=== PATIENT | male | born 1955 | race Caucasian/White ===

== ENCOUNTER 2017-12-13 07:53 | Observation (INO) | payer OTHER ==
[~2017-12-13] VITALS: Ht 180.3 cm; Wt 97.5 kg
[~2017-12-13 07:53] MED LIST: AMLODIPINE BESY10 MG PO; NEXIUM20 MG PO; ROPIVACAINE 246.25 MG, EPINEPHRINE HCL 1:1000 0.5 MG, CLONIDINE HCL 0.08 MG, KETOROLAC ... INJ ONE
[2017-12-13] MEDS ORDERED: CELECOXIB 200 MG CAP ONE (07:56)
--- OUTSIDE RECORDS SUMMARY | 2017-12-13 07:56 | XMS REPORT | Clinical Summary ---
Author Author [facility] Organization [facility] Address Unknown Phone Unavailable Care Team Providers Care Hand Cutter Apprentice Name Role Phone Dayne Diamond MD PCP Allergies No Known Allergies Current Medications Prescription Sig. Disp. Refills Start End Date Status Date amLODIPine (NORVASC) 10 10/06/19 Active mg tablet 17 meloxicam (MOBIC) 7.5 mg as needed. 09/18/19 Active tablet 17 esomeprazole magnesium Take by mouth as needed. Active 22.3 mg capsule,delayed release(DR/EC) docusate sodium (STOOL Take 250 mg by mouth Active SOFTENER) 250 MG capsule daily. melatonin 10 mg capsule Take by mouth. Active oxymetazoline (AFRIN) 2 sprays into each Active 0.05 % nasal spray nostril 2 (two) times a day. bisacodyl (GENTLE Take 5 mg by mouth daily Active LAXATIVE) 5 mg EC tablet as needed for constipation. cetirizine (ZyrTEC) 10 MG Take 10 mg by mouth Active tablet daily. fluticasone (FLONASE) 50 2 sprays by Each Nare Active mcg/actuation nasal spray route daily. esomeprazole (NexIUM) 20 07/26/20 Active MG capsule 17 naltrexone (DEPADE) 50 mg Take 50 mg by mouth Active tablet daily. naproxen (NAPROSYN) 500 Take 1 tablet (500 mg 20 tablet 0 08/25/19 09/04/19 MG tablet total) by mouth 2 (two) 18 18 times a day as needed (pain) for up to 10 days. aluminum-magnesium Take 30 mL by mouth 3 450 mL 0 08/25/19 08/30/19 hydroxide (MAALOX) (three) times a day 18 18 200-200 mg/5 mL before meals for 5 days. suspension ranitidine (ZANTAC) 150 Take 1 tablet (150 mg 10 tablet 0 08/25/19 08/30/19 MG tablet total) by mouth 2 (two) 18 18 times a day for 5 days. Active Problems Problem Noted Date Esophagitis 11/23/2016 Diaphragmatic hernia without obstruction and without gangrene 11/23/2016 Internal hemorrhoids 11/23/2016 Constipation 11/23/2016 Abdominal pain 11/01/2016 Dyspepsia 11/01/2016 Gastroesophageal reflux disease 11/01/2016 Family history of colon cancer 11/01/2016 Encounters Date Type Specialty Care Team Description 08/25/2017 Emergency Emergency Medicine Ryan Dalton MD Right upper quadrant Leonel Castaneda MD abdominal pain (Primary Dx) after 12/12/2016 Family History Medical History Relation Name Comments Colon cancer Father Colon polyps Father Heart attack Sister Relation Name Status Comments Father Mother Sister Social History Tobacco Use Types Packs/Day Years Used Date Former Smoker Quit: 11/01/2009 Smokeless Tobacco: Chew Current User Alcohol Use Drinks/Week oz/Week Comments Yes 3 Cans of 1.8 daily beer Sex Assigned at Date Recorded Not on file Last Filed Vital Signs Vital Sign Reading Time Taken Blood Pressure 142/104 08/25/2017 4:41 PM ORDER BUILDER LOADER Pulse 107 08/25/2017 4:41 PM ORDER BUILDER LOADER Temperature 37.4 C (99.3 F) 08/25/2017 1:35 PM ORDER BUILDER LOADER Respiratory Rate 19 08/25/2017 4:41 PM ORDER BUILDER LOADER Oxygen Saturation 97% 08/25/2017 4:41 PM ORDER BUILDER LOADER Inhaled Oxygen - - Concentration Weight 93.4 kg (206 lb) 08/25/2017 9:49 AM ORDER BUILDER LOADER Height 182.9 cm (6') 08/25/2017 9:49 AM ORDER BUILDER LOADER Body Mass Index 27.94 08/25/2017 9:49 AM ORDER BUILDER LOADER Plan of Treatment Date Type Specialty Care Team Description 12/29/2017 [facility] [address] [place] [id number] Health Maintenance Due Date Last Done Comments COLONOSCOPY 10/17/2007 SHINGRIX VACCINE (#1) 10/17/2007 ZOSTER VACCINE 2017 INFLUENZA VACCINE 03/15/2018 Results * ECG ED Preliminary Interpretation - NOT AN ORDER (08/25/2017 5:16 PM) Narrative Leonel Castaneda MD 08/25/20175:16 PM ECG ED Preliminary Interpretation - Not an Order Performed by: LEONEL CASTANEDA Authorized by: LEONEL CASTANEDA ECG reviewed by ED Physician in the absence of a butting saw operator: yes Interpretation: Interpretation: normal Rate: ECG rate:121 ECG rate assessment: tachycardic Rhythm: Rhythm: sinus tachycardia Ectopy: Ectopy: none QRS: QRS axis:Normal Conduction: Conduction: normal ST segments: ST segments:Normal T waves: T waves: normal * CT Abdomen Pelvis W Contrast (08/25/2017 3:58 PM) Specimen Performing Laboratory [facility] [address] [place] [address] Narrative EXAMINATION:CT ABDOMEN PELVIS W CONTRAST CLINICAL HISTORY:hx of cirroshisworsening RUQ pain TECHNIQUE: Multiple axial CT images of the abdomen and pelvis are obtained with the use of intravenous contrast. Coronal and sagittal 3-D reconstructions are obtained. CT scans are performed using radiation dose reduction techniques.Technical factors are evaluated and adjusted to ensure appropriate moderation of exposure. Automated dose management technology is applied to adjust radiation exposure while achieving a diagnostic quality image. COMPARISON:None. FINDINGS: Visualized lower lung zones are clear. The gallbladder has been removed. The CT appearance of the liver, spleen, adrenal glands and pancreas is unremarkable. The abdominal aorta has no aneurysmal dilatation. There is no retroperitoneal adenopathy. The kidneys do not have any solid renal mass or hydronephrosis. CT Pelvis: There is no evidence of any pneumoperitoneum. The appendix is visualized and does not have any inflammatory change. There is some mild stranding seen within the ascending colon which may represent possible early colitis. The remainder of the colon is unremarkable. There is no small bowel obstruction nor any dilated loops of bowel present. The bladder does not demonstrate any masses. There is no evidence of any inguinal hernia. IMPRESSION: 1. There is some minimal stranding seen adjacent to the ascending colon near the hepatic flexure. This finding may represent possible early colitis. 2. There is no bowel obstruction nor any dilated loops of bowel. 3. The gallbladder has been previously removed. 4. The abdomen and pelvis do not demonstrate any masses. [facility]-[id number] August 2015 Procedure Note Interface, Radiology Results Incoming - 08/25/2017 4:21 PM ORDER BUILDER LOADER EXAMINATION: CT ABDOMEN PELVIS W CONTRAST CLINICAL HISTORY: hx of cirroshis worsening RUQ pain TECHNIQUE: Multiple axial CT images of the abdomen and pelvis are obtained with the use of intravenous contrast. Coronal and sagittal 3-D reconstructions are obtained. CT scans are performed using radiation dose reduction techniques. Technical factors are evaluated and adjusted to ensure appropriate moderation of exposure. Automated dose management technology is applied to adjust radiation exposure while achieving a diagnostic quality image. COMPARISON: None. FINDINGS: Visualized lower lung zones are clear. The gallbladder has been removed. The CT appearance of the liver, spleen, adrenal glands and pancreas is unremarkable. The abdominal aorta has no aneurysmal dilatation. There is no retroperitoneal adenopathy. The kidneys do not have any solid renal mass or hydronephrosis. CT Pelvis: There is no evidence of any pneumoperitoneum. The appendix is visualized and does not have any inflammatory change. There is some mild stranding seen within the ascending colon which may represent possible early colitis. The remainder of the colon is unremarkable. There is no small bowel obstruction nor any dilated loops of bowel present. The bladder does not demonstrate any masses. There is no evidence of any inguinal hernia. IMPRESSION: 1. There is some minimal stranding seen adjacent to the ascending colon near the hepatic flexure. This finding may represent possible early colitis. 2. There is no bowel obstruction nor any dilated loops of bowel. 3. The gallbladder has been previously removed. 4. The abdomen and pelvis do not demonstrate any masses. [id number] August 2015 * Lactic acid level (08/25/2017 3:37 PM) Only the most recent of 2 results within the time period is included. Component Value Ref Range Lactic acid 1.1 0.5 - 2.2 mmol/L Specimen Performing Laboratory Blood [facility] [address] [place] [address] [place] [address] * Urinalysis screen and microscopy, with reflex to culture (08/25/2017 12:08 PM) Component Value Ref Range Specimen site Clean catch Color, UA Yellow Appearance, UA Clear Specific gravity, UA 1.017 1.001 - 1.035 pH, UA 6.0 5.0 - 8.5 Protein, UA 1+ (A) Negative Glucose, UA Negative Negative Ketones, UA Negative Negative Bilirubin, UA Negative Negative Blood, UA Trace (A) Negative Nitrite, UA Negative Negative Urobilinogen, UA Negative <2.0 Leukocyte esterase, UA Negative Negative WBC, UA 2 0 - 1 /HPF RBC, UA 1 0 - 1 /HPF Bacteria, UA None seen None seen Yeast, UA None seen Yeast with pseudohyphae, None seen UA Hyaline casts, UA 7 /LPF Specimen Performing Laboratory Urine [facility] [address] [place] [address] * Urine culture (08/25/2017 12:08 PM) Component Value Ref Range Urine culture SEE COMMENTComment: Bacteriuria screen negative. Specimen Performing Laboratory Urine [facility] [address] [place] [address] * Estimated GFR (08/25/2017 11:52 AM) Component Value Ref Range GFR Non Af Amer 86 mL/min/1.73 m2 GFR Af Amer >90 mL/min/1.73 m2 Comment: Chronic kidney disease: <60 mL/min/1.73m2 Kidney failure: <15 mL/min/1.73m2 The estimated GFR is calculated from the IDMS-traceable Modification of Diet in Renal Disease Equation. The accuracy of the calculation is poor when the creatinine is normal. Calculated values >90 mL/min/1.73m2 are not reported. This equation has not been validated in children (<18 years), women, the elderly (>70 years), or ethnic groups other than Caucasians and Americans. Specimen Performing Laboratory Plasma specimen [facility] [address] [place] [address] * CBC with platelet and differential (08/25/2017 11:52 AM) Component Value Ref Range WBC 9.8 4.2 - 11.0 k/uL RBC 4.84 4.04 - 5.86 m/uL HGB 15.2 13.0 - 17.3 g/dL HCT 41.9 34.0 - 45.0 % MCV 86.6 80.0 - 98.0 fL MCH 31.4 27.0 - 34.0 pg MCHC 36.3 31.5 - 36.5 g/dL RDW - SD 37.2 37.0 - 51.0 fL MPV 9.5 7.4 - 10.4 fL Platelet count 224 150 - 400 k/uL Nucleated RBC 0.00 /100 WBC Neutrophils 72.9 (H) 36.0 - 66.0 % Lymphocytes 20.4 (L) 24.0 - 44.0 % Monocytes 5.5 0.0 - 6.0 % Eosinophils 0.5 0.0 - 6.0 % Basophils 0.4 0.0 - 1.2 % Immature granulocytes 0.3 0.0 - 1.0 % Specimen Performing Laboratory Blood [facility] [address] [place] [address] * Lipase level (08/25/2017 11:52 AM) Component Value Ref Range Lipase 314 (H) 65 - 230 U/L Specimen Performing Laboratory Plasma specimen [facility] AND [facility] [address] [place] [address] * Amylase level (08/25/2017 11:52 AM) Component Value Ref Range Amylase 31 (L) 34 - 122 U/L Specimen Performing Laboratory Plasma specimen [facility] AND [facility] [address] [place] [address] * Comprehensive metabolic panel (08/25/2017 11:52 AM) Component Value Ref Range Sodium 131 (L) 135 - 150 mEq/L Potassium 3.3 (L) 3.5 - 5.0 mEq/L Chloride 98 (L) 100 - 109 mEq/L CO2 23 (L) 24 - 32 mmol/L Anion gap 10 7 - 15 mEq/L Comment: Starting from November , anion gap calculation no longer incorporates potassium. Please note the change. BUN 12 7 - 18 mg/dL Creatinine 0.9 0.8 - 1.5 mg/dL Glucose 134 (H) 65 - 100 mg/dL Calcium 8.9 8.6 - 10.7 mg/dL Protein 8.1 6.3 - 8.2 g/dL Albumin 3.9 3.2 - 5.0 g/dL A/G ratio 0.9 0.7 - 3.8 Alkaline phosphatase 74 30 - 120 U/L AST 74 (H) 15 - 37 U/L ALT 67 (H) 30 - 65 U/L Total bilirubin 1.5 (H) 0.2 - 1.2 mg/dL Specimen Performing Laboratory Plasma specimen [facility] [address] [place] [address] * ECG 12 lead (08/25/2017 9:32 AM) Component Value Ref Range Ventricular rate 121 Atrial rate 121 NE interval 148 QRSD interval 92 QT interval 318 QTC interval 451 P axis 1 29 QRS axis 1 34 T wave axis -9 EKG impression Sinus tachycardia-Nonspecific ST abnormality-Abnormal ECG-No previous ECGs available- Specimen Performing Laboratory [facility] [address] [place] [address] after 12/12/2016 Insurance Payer Benefit Subscriber ID Type Phone Address Plan / Group TEX[employer] TEX[employer] xxxxxxxxx [facility] Home: [facility] [address] [facility] [place] [phone]
[2017-12-13] MEDS ORDERED: GABAPENTIN 300 MG CAP ONE (07:57)
[2017-12-13] MEDS ORDERED: CEFAZOLIN SOD 2 GM/D5W 50ML 50 ML IV ONE (07:57)
[2017-12-13] MEDS ORDERED: DEXAMETHASONE SOD PHOS 10 MG/1 ML VIAL ONE (07:57)
[2017-12-13] MEDS ORDERED: MUPIROCIN 2% OINT 22 GM TUBE ONE (08:53)
[2017-12-13] MEDS ORDERED: BACITRACIN 50,000 UNIT VIAL ONE (08:53)
[2017-12-13] MEDS ORDERED: TRANEXAMIC ACID 1,000 MG/10 ML ML ONE (08:53)
[2017-12-13] MEDS ORDERED: DOCUSATE SODIUM 100 MG CAP PO PRN (10:15)
[2017-12-13] MEDS ORDERED: DIPHENHYDRAMINE HCL INJ 50 MG/ML VIAL IM/IV PRN (10:15)
[2017-12-13] MEDS ORDERED: HYDROCODONE/APAP 5MG-325MG TAB PO PRN (10:15)
[2017-12-13] MEDS ORDERED: ONDANSETRON HCL INJ 2 MG/ML VIAL IV PRN (10:15)
[2017-12-13] MEDS ORDERED: KETOROLAC TROMETHAMINE 30 MG/ML VIAL IV PRN (10:15)
[2017-12-13] MEDS ORDERED: ACETAMINOPHEN 650 MG SUPP PR PRN (10:15)
[2017-12-13] MEDS ORDERED: PROMETHAZINE HCL (IM) 25 MG/ML VIAL IM PRN (10:15)
[2017-12-13] MEDS ORDERED: FENTANYL CITRATE/PF 100MCG/2 ML INJ ONE ×2 (10:34→19:37)
[2017-12-13] MEDS ORDERED: HYDROMORPHONE 1MG/1ML INJ ONE ×2 (10:43→11:06)
--- NOTE | 2017-12-13 11:26 | Diagnostic Imaging Report ---
PROCEDURE:KNEE LEFT 1-2 VIEWS TECHNIQUE:Portable AP and lateral views left knee INDICATION:Postoperative evaluation COMPARISON:None. FINDINGS: See conclusion. CONCLUSION: 1. Total left knee arthroplasty intact and in anatomic alignment. 2. Expected regional postsurgical sequela including gas, effusion and soft tissue swelling. Surgical redd. 3. No acute abnormality. Dictated by: Mal Connolly M.D. on 12/13/2017 at 11:27 Electronically approved by: Mal Connolly M.D. on 12/13/2017 at 11:27
--- OUTSIDE RECORDS SUMMARY | 2017-12-13 11:34 | XMS REPORT ---
Author Author [facility] Address Unknown Phone Unavailable Care Team Providers Care Elevator Service Technician Name Role Phone BREEZY CELIS Unavailable Unavailable Problems This patient has no known problems. Allergies, Adverse Reactions, Alerts This patient has no known allergies or adverse reactions. Medications This patient has no known medications. Results Test Description Test Time Test Comments Text Results Atomic Results Result Comments KNEE LEFT 1-2 VIEWS [place] [address] Patient Name: CLAUDETTE CROCKER MR #: [id number] : 1955 Age/Sex: 62/M Req #: [id number] [facility] Physician: Ordered by: BREEZY CELIS MD Report #: [id number] Location: OR Room/Bed: Procedure: [id number] DX/KNEE LEFT 1-2 VIEWS Exam Date: Exam Time: REPORT STATUS: Signed PROCEDURE: KNEE LEFT 1-2 VIEWS TECHNIQUE: Portable AP and lateral views left knee INDICATION: Postoperative evaluation COMPARISON: None. FINDINGS: See conclusion. CONCLUSION: 1. Total left knee arthroplasty intact and in anatomic alignment. 2. Expected regional postsurgical sequela including gas , effusion and soft tissue swelling. Surgical redd. 3. No acute abnormality. Dictated by: Meliza Connolly M.D. on 12/13/2017 at 11:27 Electronically approved by: Meliza Connolly M.D. on 5/01/ 2018 at 11:27 Dictated By: MELIZA CONNOLLY MD 112 Transcribed By: LUZ on 1127 COPY TO: BREEZY CELIS MD
--- OUTSIDE RECORDS SUMMARY | 2017-12-13 11:34 | XMS REPORT | Clinical Summary ---
Author Author [facility] Organization [facility] Address Unknown Phone Unavailable Care Team Providers Care Tool And Die Maker/Designer Name Role Phone Dayne Diamond MD PCP [...] Taken Blood Pressure 142/104 08/25/2017 4:41 PM INTERNAL CONTROL CONSULTANT Pulse 107 08/25/2017 4:41 PM INTERNAL CONTROL CONSULTANT Temperature 37.4 C (99.3 F) 08/25/2017 1:35 PM INTERNAL CONTROL CONSULTANT Respiratory Rate 19 08/25/2017 4:41 PM INTERNAL CONTROL CONSULTANT Oxygen Saturation 97% 08/25/2017 4:41 PM INTERNAL CONTROL CONSULTANT Inhaled Oxygen - - Concentration Weight 93.4 kg (206 lb) 08/25/2017 9:49 AM INTERNAL CONTROL CONSULTANT Height 182.9 cm (6') 08/25/2017 9:49 AM INTERNAL CONTROL CONSULTANT Body Mass Index 27.94 08/25/2017 9:49 AM INTERNAL CONTROL CONSULTANT Plan of Treatment Date Type Specialty Care Team Description 12/29/2017 [facility] [address] [place] [address] Health Maintenance Due Date Last Done [...] ED Physician in the absence of a harmonic analyst: yes Interpretation: Interpretation: normal Rate: ECG rate:121 ECG rate assessment: tachycardic Rhythm: Rhythm: sinus tachycardia Ectopy: Ectopy: none QRS: QRS axis:Normal Conduction: Conduction: normal ST segments: ST segments:Normal T waves: T waves: normal * CT Abdomen Pelvis W Contrast (08/25/2017 3:58 PM) Specimen Performing Laboratory [facility] [address] [place] [address] Narrative EXAMINATION:CT ABDOMEN PELVIS W CONTRAST CLINICAL [...] and pelvis do not demonstrate any masses. [facility]-[id number] August 2015 Procedure Note Interface, Radiology Results Incoming - 08/25/2017 4:21 PM INTERNAL CONTROL CONSULTANT EXAMINATION: CT ABDOMEN PELVIS W CONTRAST CLINICAL [...] and pelvis do not demonstrate any masses. [id number] August 2015 * Lactic acid level (08/25/2017 3:37 PM) Only the most recent of 2 results within the time period is included. Component Value Ref Range Lactic acid 1.1 0.5 - 2.2 mmol/L Specimen Performing Laboratory Blood [facility] [address] [place] [address] [place] [address] * Urinalysis screen and microscopy, with reflex [...] UA 7 /LPF Specimen Performing Laboratory Urine [facility] [address] [place] [address] * Urine culture (08/25/2017 12:08 PM) Component Value Ref Range Urine culture SEE COMMENTComment: Bacteriuria screen negative. Specimen Performing Laboratory Urine [facility] [address] [place] [address] * Estimated GFR (08/25/2017 11:52 AM) Component [...] and Americans. Specimen Performing Laboratory Plasma specimen [facility] [address] [place] [address] * CBC with platelet and differential (08/25/2017 [...] - 1.0 % Specimen Performing Laboratory Blood [facility] [address] [place] [address] * Lipase level (08/25/2017 11:52 AM) Component Value Ref Range Lipase 314 (H) 65 - 230 U/L Specimen Performing Laboratory Plasma specimen [facility] AND [facility] [address] [place] [address] * Amylase level (08/25/2017 11:52 AM) Component Value Ref Range Amylase 31 (L) 34 - 122 U/L Specimen Performing Laboratory Plasma specimen [facility] AND [facility] [address] [place] [address] * Comprehensive metabolic panel (08/25/2017 11:52 AM) [...] 1.2 mg/dL Specimen Performing Laboratory Plasma specimen [facility] AND [facility] [address] [place] [address] * ECG 12 lead (08/25/2017 9:32 AM) Component Value Ref Range Ventricular rate 121 Atrial rate 121 IA interval 148 QRSD interval 92 QT interval 318 QTC interval 451 P axis 1 29 QRS axis 1 34 T wave axis -9 EKG impression Sinus tachycardia-Nonspecific ST abnormality-Abnormal ECG-No previous ECGs available- Specimen Performing Laboratory [facility] [address] [place] [address] after 12/12/2016 Insurance Payer Benefit Subscriber ID Type Phone Address Plan / Group TEXAN[employer] TEXAN[employer]US xxxxxxxxx [facility][1] Home: [facility] [address] [facility] [place] [phone]
[2017-12-13 12:48] VITALS: BP 118/64
[2017-12-13] MEDS: SODIUM CHLORIDE 0.9% 1000ML 1,000 ML IV SCH ×2 (12:54→20:09)
[2017-12-13] MEDS: ACETAMINOPHEN 1000 MG/100 ML IV SCH ×2 (13:01→18:17)
[2017-12-13 13:05] VITALS: BP 118/64
[2017-12-13] MEDS ORDERED: CEFAZOLIN SOD 1 GM/NS 50ML 50 ML IV SCH (14:00)
--- NOTE | 2017-12-13 14:31 | Operative Report ---
DATE OF PROCEDURE: December 13, 2017 LARGE ANIMAL HUSBANDRY TECHNICIAN: Evens Chapin PA-C The patient was brought to the operating room for induction of anesthesia. Throughout this case, my PA's assistance was necessary for retraction of soft tissue and positioning of the extremity. This allows for efficient and technically successful execution of the operation and is considered medically necessary. PREOPERATIVE DIAGNOSIS: Osteoarthritis left knee. POSTOPERATIVE DIAGNOSIS: Osteoarthritis left knee. PROCEDURE: Left total knee arthroplasty. INDICATIONS: The patient is a 62-year-old gentleman who has end-stage varus arthritis of his left knee. The findings and options have been discussed. He has failed conservative management and would like to proceed with a left total knee replacement. He is status post a right knee replacement by another physician some years ago. He states he understands the plan of care and wishes to proceed. DESCRIPTION OF PROCEDURE: The patient was brought to the operating room and placed under general anesthetic. He received prophylactic antibiotics, a regional block and tranexamic acid in the holding area. His left lower extremity was prepped and draped in a sterile manner. A preoperative time out was performed. The extremity was exsanguinated and a proximal tourniquet was inflated to 300 mmHg. Standard anterior approach with a medial parapatellar arthrotomy was performed. Clear synovial fluid was removed from the joint. Soft tissue releases were performed to bring the knee up into flexion with the patella everted. The cruciate ligaments were sacrificed. The meniscal remnants and marginal osteophytes were removed. A Matthews and Nephew Chacha II posterior stabilized knee system was used throughout the case. An extramedullary cutting guide was used to resect the proximal tibia. The cut was referenced off of the lateral compartment. Dense sclerotic bone was encountered in the medial compartment. This was sized at a number 7 baseplate. The central fin punch was impacted. Additional drill holes were placed into the sclerotic bone. Attention was directed towards the distal femur. An intramedullary cutting guide was used to resect the distal femur in 6 degrees of valgus and rotation referenced off of a combination of landmarks including Rachelle line, the epicondylar axis and posterior condyles. The femoral component was sized at a number 7. The anterior and posterior cuts were made. Trial reductions were performed. A 9 mm ultra congruent tibial insert provided optimal soft tissue balancing in full extension and 90 degrees in flexion. The patella was then resurfaced with a 35 mm x 9 mm patellar button. The thickness was checked before and after and was right at 26 mm. Patellar tracking was noted to be concentric. The trial implants were then removed. A 100 mL premixed pericapsular JOANNA injection was placed into the surroundings soft tissue. The knee was thoroughly irrigated with a shower-tip pulsatile lavage. The components were cemented into place using a single mix of Palacos cement pre-loaded with antibiotics. Care was taken to remove extravasated cement. The wound was further irrigated while the cement cured. The arthrotomy was then closed with interrupted number 1 Ethibond. The knee was put through flexion and extension to ensure a secure closure. The skin was then closed with subcuticular Vicryl and redd. A sterile bandage was applied. Estimated blood loss was minimal. All needle and sponge counts were correct. Job#: [id number]
[2017-12-13 15:35] VITALS: BP 121/81
[2017-12-13] MEDS: CELECOXIB 200 MG CAP PO SCH (16:13)
[2017-12-13] MEDS: ASPIRIN 325 MG TAB PO SCH (16:13)
[2017-12-13] MEDS: CEFAZOLIN SOD 1 GM VIAL IV SCH (16:13)
[2017-12-13] MEDS ORDERED: ROPIVACAINE 0.5% 5 MG/ML 30 ML SDV ONE (18:30)
[2017-12-13] MEDS ORDERED: LIDOCAINE 2%/ EPINEPHRINE 20ML MDV ONE (18:30)
[2017-12-13] MEDS ORDERED: ONDANSETRON HCL INJ 2 MG/ML VIAL ONE (19:37)
[2017-12-13] MEDS ORDERED: MIDAZOLAM HCL 2 MG/2 ML VIAL ONE (19:37)
[2017-12-13] MEDS ORDERED: PROPOFOL IV EMULSION 10 MG/ML 20 ML VIAL ONE (19:37)
[2017-12-13] MEDS ORDERED: SEVOFLURANE INHAL SOLN 250 ML PEN BTL ONE (19:37)
[2017-12-13] MEDS ORDERED: DEXAMETHASONE SOD PHOS INJ 4 MG/ML VIAL ONE (19:37)
[2017-12-13] MEDS ORDERED: ACETAMINOPHEN 1000 MG/100 ML IV ONE (19:37)
[2017-12-13] MEDS ORDERED: LIDOCAINE HCL 2% LOCAL INJ 5 ML SDV VIAL INJ ONE (19:37)
[2017-12-13 19:50] VITALS: BP 118/63
[2017-12-13 20:00] VITALS: BP 118/63
[2017-12-13] MEDS ORDERED: ZOLPIDEM TARTRATE 5 MG TAB PO PRN (21:00)
[2017-12-13] MEDS: HYDROCODONE/APAP 7.5MG-325MG 1 EA TAB PO PRN (22:58)
[2017-12-14] VITALS: BP 114/56
[2017-12-14] MEDS: CEFAZOLIN SOD 1 GM VIAL IV SCH ×2 (00:04→08:47)
[2017-12-14] MEDS: ACETAMINOPHEN 1000 MG/100 ML IV SCH ×2 (00:04→06:21)
[2017-12-14] MEDS: SODIUM CHLORIDE 0.9% 1000ML 1,000 ML IV SCH (06:09)
[2017-12-14 07:07] LABS: HEMATOCRIT 34.1 % (38.2-49.6); HEMOGLOBIN 11.9 g/dL (14.0-18.0)
[2017-12-14 08:00] VITALS: BP 141/73
[2017-12-14 08:03] VITALS: BP 141/73
[2017-12-14] MEDS ORDERED: ASPIRIN325 MG PO (08:42)
[2017-12-14] MEDS: CELECOXIB 200 MG CAP PO SCH (08:47)
[2017-12-14] MEDS: ASPIRIN 325 MG TAB PO SCH (08:47)
[2017-12-14] MEDS ORDERED: ACETAMINOPHEN 1000 MG/100 ML IV PRN (10:15)
[2017-12-14] MEDS: HYDROCODONE/APAP 7.5MG-325MG 1 EA TAB PO PRN ×2 (10:30→15:10)
[2017-12-14 13:00] VITALS: BP 134/81
[2017-12-14] MEDS ORDERED: HYDROCODON-ACE1 EA12 PO (14:29)
== END 2017-12-14 15:21 | disposition home health service (06) ==
LOC: OR 07:53 → MED/SURG 11:31
PROVIDERS: ADMIT Specialist; ATTEND Specialist
PROC: 0SRD0J9 Replacement of Left Knee Joint with Synthetic Substitute, Cemented, Open Approach (ICD-10-PCS; principal; 2017-12-13 11:00)
DX: M17.12 Unilateral primary osteoarthritis, left knee (principal); K29.70 Gastritis, unspecified, without bleeding; I10 Essential (primary) hypertension; Z90.49 Acquired absence of other specified parts of digestive tract; Z96.651 Presence of right artificial knee joint; Z82.49 Family history of ischemic heart disease and other diseases of the circulatory system; Z82.3 Family history of stroke; K21.9 Gastro-esophageal reflux disease without esophagitis; Z72.0 Tobacco use
CPT/HCPCS: 27447; 36415; 73560; 85014; 85018; 86850; 86900; 86920; 97116; 97139; 97161; 97530 ×2; G0378 ×2; G8981; G8982; J0171; J0690 ×2; J1100 ×2; J1170; J1885; J2001 ×2; J2250; J2405; J2795; J7030